=== PATIENT | female | born 1955 | race Caucasian/White ===

== ENCOUNTER 2017-01-03 17:04 | Observation (INO) | payer MEDICARE, OTHER ==
[~2017-01-03] VITALS: Ht 152.4 cm; Wt 79.0 kg
[~2017-01-03 17:04] MED LIST: AMLO10 PO; CYCL-36 PO; LAMI200T PO; SERO100T PO
[2017-01-03 17:15] VITALS: BP 193/124; PULSE 82; RESP 16; TEMP 98.2; O2SAT 95
[2017-01-03 17:21] VITALS: BP 195/106; PULSE 72; RESP 19; O2SAT 95
--- NOTE | 2017-01-03 17:55 | PD ---
HPI Chief Complaint: Pain: Acute or Chronic Time Seen by Provider: 17:44 Travel History International Travel<30 days: No Contact w/Intl Traveler<30days: No Traveled to known affect area: No History of Present Illness HPI 61yo F with PMH of HTN noncompliant with medication for 1 month, CVA, borderline DM presents to the ED with c/o left upper back pain that radiates to left arm, left chest and left neck. States it is pressure like and constant for 2 days. Associated with sob and tingling in the distal aspects of her left fingers. Denies any fever, n/v, abdominal pain, trauma, focal weakness or slurred speech. Took advil with no improvement. PFSH Past Medical History Arthritis: No Asthma: Yes Bipolar Disorder: Yes Cardiovascular Problems: Yes (HTN) High Cholesterol: No Cerebrovascular Accident: Yes Diabetes: Yes Patient Takes Glucophage: No Gastrointestinal Disorders: Yes Genitourinary: No Hypertension: Yes Musculoskeletal: Yes Neurologic: Yes Psychiatric: Yes Respiratory: Yes Myocardial Infarction: Yes Influenza Vaccination: No ?: Not Menopausal: Yes Past Surgical History Abdominal Surgery: Yes (CHOLECYSTECTOMY, APPENDECTOMY) Appendectomy: Yes Cardiac Surgery: No Cholecystectomy: Yes Ear Surgery: No Endocrine Surgery: No Eye Surgery: No Genitourinary Surgery: No Gynecologic Surgery: Yes (HYSTERECTOMY) Hysterectomy: Yes Thoracic Surgery: No Other Surgery: Yes Social History Alcohol Use: Yes (RARELY) Tobacco Use: No Substance Use: No Allergies-Medications (Allergen,Severity, Reaction): Coded Allergies: Penicillin (Verified Allergy, Severe, 01/03/17) Sulfa (Verified Allergy, Severe, 01/03/17) Reported Meds & Prescriptions Reported Meds & Active Scripts Active No Active Prescriptions or Reported Medications Review of Systems Except as stated in HPI: all other systems reviewed are Neg Physical Exam Narrative GENERAL: 61yo F not in distress. SKIN: Warm and dry. HEAD: Atraumatic. Normocephalic. EYES: Pupils equal and round. EOMI. No scleral icterus. No injection or drainage. ENT: No nasal bleeding or discharge. Mucous membranes pink and moist. NECK: Trachea midline. No JVD. +TTP left paraspinal muscle. CARDIOVASCULAR: Regular rate and rhythm. No murmur appreciated. RESPIRATORY: No accessory muscle use. Clear to auscultation. Breath sounds equal bilaterally. GASTROINTESTINAL: Abdomen soft, non-tender, nondistended. MUSCULOSKELETAL: +TTP left trapezius. LUE: Radial pulse 2+. Deltoid sensation intact. Able to move left shoulder. No obvious deformities. No clubbing. No cyanosis. No edema. NEUROLOGICAL: Awake and alert. No obvious cranial nerve deficits. Motor grossly within normal limits. Normal speech. PSYCHIATRIC: Appropriate mood and affect; insight and judgment normal. Data Data Last Documented VS Vital Signs Date Time Temp Pulse Resp B/P Pulse Ox O2 Delivery O2 Flow Rate FiO2 01/03/17 19:00 65 16 180/95 97 Nasal Cannula 2 01/03/17 17:15 98.2 Orders Basic Metabolic Panel (Bmp) (01/03/17 17:52) Ckmb (Isoenzyme) Profile (01/03/17:52) Complete Blood Count With Diff (01/03/17:52) Magnesium (Mg) (01/03/17 17:52) Prothrombin Time / Inr (Pt) (01/03/17:52) Act Partial Throm Time (Ptt) (01/03/17 17:52) Troponin I (01/03/17 17:52) Chest, Single Ap (01/03/17 17:52) Ecg Monitoring (01/03/17 17:52) Bilateral Bp Monitoring (01/03/17:52) Iv Access Insert/Monitor (01/03/17:52) Oximetry (01/03/17 17:52) Oxygen Administration (01/03/17 17:52) Aspirin (Aspirin) (01/03/17 18:00) Sodium Chloride 0.9% Flush (Ns Flush) (01/03/17 18:00) Ketorolac Inj (Toradol Inj) (01/03/17 18:00) Electrocardiogram (01/03/17 ) Diazepam (Valium) (01/03/17 19:45) Admit Order (Ed Use Only) (01/03/17 19:43) Activity Bed Rest With Brp (01/03/17:43) Vital Signs (Adult) Q4H (01/03/17 19:43) Cardiac Rhythm .As Directed (01/03/17:43) ^ Notify Dr: Other .PRN (01/03/17:43) ^ Notify Dr. Parameters (3/14/17 19:43) Resp Oxygen Nasal Cannula (01/03/17 ) Ckmb (Isoenzyme) Profile (01/03/17 19:43) Ckmb (Isoenzyme) Profile (01/03/17 22:43) Troponin I (01/03/17 19:43) Troponin I (01/03/17 22:43) Electrocardiogram (01/03/17 19:43) Electrocardiogram (01/03/17 22:43) ^ Obtain (01/03/17 19:43) Sodium Chloride 0.9% Flush (Ns Flush) (01/03/17 19:45) Sodium Chloride 0.9% Flush (Ns Flush) (01/03/17 21:00) Comb Machine Operator / Telemetry TED.Q8H (01/03/17 19:43) Labs Laboratory Tests Test 01/03/17 17:55 White Blood Count 5.7 TH/MM3 Red Blood Count 4.61 MIL/MM3 Hemoglobin 14.3 GM/DL Hematocrit 41.1 % Mean Corpuscular Volume 89.3 FL Mean Corpuscular Hemoglobin 31.0 PG Mean Corpuscular Hemoglobin 34.7 % Concent Red Cell Distribution Width 13.9 % Platelet Count 147 TH/MM3 Mean Platelet Volume 7.7 FL Neutrophils (%) (Auto) 64.9 % Lymphocytes (%) (Auto) 28.4 % Monocytes (%) (Auto) 5.1 % Eosinophils (%) (Auto) 1.2 % Basophils (%) (Auto) 0.4 % Neutrophils # (Auto) 3.7 TH/MM3 Lymphocytes # (Auto) 1.6 TH/MM3 Monocytes # (Auto) 0.3 TH/MM3 Eosinophils # (Auto) 0.1 TH/MM3 Basophils # (Auto) 0.0 TH/MM3 CBC Comment DIFF FINAL Differential Comment Prothrombin Time 11.7 SEC Prothromb Time International 1.1 RATIO Ratio Activated Partial 25.6 SEC Thromboplast Time Sodium Level 145 MEQ/L Potassium Level 3.8 MEQ/L Chloride Level 107 MEQ/L Carbon Dioxide Level 28.2 MEQ/L Anion Gap 10 MEQ/L Blood Urea Nitrogen 10 MG/DL Creatinine 0.75 MG/DL Estimat Glomerular Filtration 78 ML/MIN Rate Random Glucose 105 MG/DL Calcium Level 8.8 MG/DL Magnesium Level 2.2 MG/DL Total Creatine Kinase 95 U/L Troponin I LESS THAN 0.02 NG/ML [facility] Medical Decision Making Medical Screen Exam Complete: Yes Emergency Medical Condition: Yes Interpretation(s) EKG: NSR 67bpm. LAD. Q wave III, aVF. TW flattening aVL. Differential Diagnosis Musculoskeletal pain vs. cervical radiculopathy vs. atypical chest pain vs. ACS Narrative Course 61yo F with very atypical chest pain. Labs reviewed, no leukocytosis. Troponin negative. CXR negative. Pt given aspirin 325mg and toradol. Pt reevaluated at bedside and still with pain. Although I feel it is mainly musculoskeletal, pt has cardiac risk factors and states pain radiates to her chest. Will given valium 2mg PO. Pt is able to move left shoulder and elbow with good range of motion. States she has not had recent cardiac work up. Will admit pt to chest pain center. Diagnosis Primary Impression: Chest pain Qualified Code: R07.9 - Chest pain, unspecified type Admitting Information Admitting Physician Requests: Observation Scripts No Active Prescriptions or Reported Meds Maggie Waters DO Jan 03, 2017 17:55
[2017-01-03] MEDS ORDERED: SODIUM CHLORIDE 0.9% FLUSH 5 ML FLUSH IVF PRN ×2 (18:00→19:45)
[2017-01-03] MEDS ORDERED: KETOROLAC TROMETHAMINE 30 MG/ML (IVP) VIAL IV PUSH ONE (18:00)
[2017-01-03] MEDS ORDERED: ASPIRIN 325 MG TAB PO ONE (18:00)
[2017-01-03 18:06] VITALS: BP 181/99; PULSE 62; RESP 16; O2SAT 98
[2017-01-03 18:07] LABS: AUTOMATED NEUTROPHIL # 3.7 TH/MM3 (1.8-7.7); BASOPHIL % 0.4 % (0.0-2.0); EOSINOPHIL # 0.1 TH/MM3 (0-0.4); EOSINOPHIL % 1.2 % (0.0-4.0); HEMATOCRIT 41.1 % (35.0-46.0); HEMO FLAGS DIFF FINAL; LYMPH % 28.4 % (9.0-44.0); LYMPHOCYTE # 1.6 TH/MM3 (1.0-4.8); MEAN CELL VOLUME 89.3 FL (80.0-100.0); MEAN CORPUSCULAR HGB CONC 34.7 % (32.0-36.0); MONO % 5.1 % (0.0-8.0); NEUT % 64.9 % (16.0-70.0); PLATELET COUNT 147 TH/MM3 (150-450); RED BLOOD COUNT 4.61 MIL/MM3 (4.00-5.30); RED CELL DISTRIBUTION WIDTH 13.9 % (11.6-17.2); WHITE BLOOD COUNT 5.7 TH/MM3 (4.0-11.0)
[2017-01-03 18:14] LABS: APTT (PATIENT) 25.6 SEC (24.3-30.1); INTERNATIONAL NORMALIZED RATIO 1.1 RATIO; PROTHROMBIN TIME - PATIENT 11.7 SEC (9.8-11.6)
[2017-01-03 18:31] LABS: ANION GAP 10 MEQ/L (5-15); BICARBONATE 28.2 MEQ/L (21.0-32.0); BLOOD UREA NITROGEN 10 MG/DL (7-18); CHLORIDE 107 MEQ/L (98-107); GLOMERULAR FILTRATION RATE 78 ML/MIN (>89); MAGNESIUM 2.2 MG/DL (1.5-2.5); POTASSIUM 3.8 MEQ/L (3.5-5.1); SODIUM (NA) 145 MEQ/L (136-145)
[2017-01-03 18:51] LABS: CREATINE KINASE 95 U/L (26-192)
[2017-01-03 19:00] VITALS: BP 180/95; PULSE 65; RESP 16; O2SAT 97
--- NOTE | 2017-01-03 19:27 | RADRPT ---
EXAM DATE/TIME: 01/03/2017 18:31 [facility] COMPARISON: CHEST SINGLE AP, June 27, 2016, 15:08. INDICATIONS : Shortness of breath. MEDICAL HISTORY : Asthma SURGICAL HISTORY : None. ENCOUNTER: Initial ACUITY: 1 day PAIN SCORE: 0/10 LOCATION: Bilateral chest FINDINGS: A single view of the chest demonstrates the lungs to be symmetrically aerated without evidence of mas s, infiltrate or effusion. The cardiomediastinal contours are unremarkable. Osseous structures are intact. Multiple overlying leads. CONCLUSION: No acute disease. Marcel Shepherd MD on January 03, 2017 at 19:26 Board Certified Radiologist. This report was verified electronically.
[2017-01-03] MEDS ORDERED: DIAZEPAM 2 MG TAB PO ONE (19:45)
[2017-01-03] MEDS: SODIUM CHLORIDE 0.9% FLUSH 5 ML FLUSH IVF SCH (20:50)
[2017-01-03 21:00] VITALS: BP 168/82; PULSE 67; RESP 16; O2SAT 98
[2017-01-03 21:55] LABS: CREATINE KINASE 76 U/L (26-192)
[2017-01-03 22:11] VITALS: O2SAT 95
[2017-01-03] MEDS ORDERED: MORPHINE SULFATE 4 MG/ML INJ IV PUSH ONE (22:45)
[2017-01-04] VITALS (7 sets, daily range): BP systolic 156–178; BP diastolic 74–93; PULSE 60–84; RESP 18; TEMP 97.8–98; O2SAT 93–97
[2017-01-04 00:44] LABS: CREATINE KINASE 67 U/L (26-192)
[2017-01-04] MEDS ORDERED: amLODIPine BESYLATE 5 MG TAB PO SCH (09:00)
[2017-01-04] MEDS: SODIUM CHLORIDE 0.9% FLUSH 5 ML FLUSH IVF SCH (09:16)
--- NOTE | 2017-01-04 11:28 | HHI.HP ---
HPI Primary Care Physician No Primary Care Physician Chief Complaint Chest pain History of Present Illness This is a 61-year-old female that presents to the ED with a complaint of chest discomfort and back pain. She states the back pain is from her upper back rates her left arm. The chest pain is left-sided chest and radiates to the left neck. It is been intermittent for about a month. Nothing in particular brings on the discomfort. She really cannot elaborate on how long the discomfort last. No associated shortness red nausea or diaphoresis with this. Cannot recall any prior stress testing but upon review records she did have an echo in April 2016 that revealed normal wall motion. EF is 55%. There was trace mitral and tricuspid regurgitation. Patient states she's been noncompliant with her medications for a month. She cannot recall the medicines that she takes but believes that one of them are a blood pressure medicine. She states she has borderline diabetes but has not taken medicine for it for a while. Review of Systems General: Patient denies fevers, chills recent, and recent travel HEENT: Patient denies headache, sore throat, difficulty swallowing. Cardiovascular: Has the chest discomfort as mentioned above. Denies sensation of heart beating rapidly or irregularly. No syncope. Respiratory: Denies shortness of breath or inspirational chest discomfort. Denies coughing wheezing or hemoptysis. GI: Patient denies nausea, vomiting, diarrhea, abdominal pain, bloody stools. Musculoskeletal: Patient is complaining of left-sided back pain that radiates down her arm. Patient denies joint pain or edema. Denies calf pain or edema. Neurovascular: Patient denies numbness, tingling, weakness in extremities. Denies headache. Endocrine: Denies polyuria and polydipsia. Hematologic: Denies easy bruising. Skin: Denies rash or itching. Past Family Social History Allergies: Coded Allergies: Penicillin (Verified Allergy, Severe, 01/03/17) Sulfa (Verified Allergy, Severe, 01/03/17) Past Medical History Hypertension, chronic back pain, noncompliance. She states she has borderline diabetes but does not take medicine. Denies hyperlipidemia and known CAD. Past Surgical History Cholecystectomy, appendectomy, and hysterectomy. Reported Medications Reported Meds & Active Scripts Active No Active Prescriptions or Reported Medications Active Ordered Medications Current Medications Medications (Trade) Dose Ordered Sig/Kamryn Route Start Time Stop Time Status Last Admin (NS Flush) 2 ml UNSCH PRN IVF 01/03/17 19:45 (NS Flush) 2 ml BID IVF 01/03/17 21:00 01/04/17 09:16 (Norvasc) 5 mg DAILY PO 01/04/17 09:00 01/04/17 09:16 Family History Patient is unaware of her family history. Social History Patient is a nonsmoker. Denies illicit drugs. She rarely has alcohol. Physical Exam Vital Signs Vital Signs Date Time Temp Pulse Resp B/P Pulse Ox O2 Delivery O2 Flow Rate FiO2 01/04/17 07:24 98.0 66 18 156/74 94 01/04/17 04:05 60 01/04/17 03:22 97.9 84 18 166/75 97 01/04/17 00:10 60 01/04/17 00:09 97.8 60 18 178/93 97 01/03/17 22:11 95 01/03/17 21:00 67 16 168/82 98 Nasal Cannula 2 01/03/17 19:00 65 16 180/95 97 Nasal Cannula 2 01/03/17 18:06 62 16 181/99 98 Nasal Cannula 2 01/03/17 18:00 98 Nasal Cannula 2 01/03/17 17:21 72 19 195/106 95 Nasal Cannula 2 01/03/17 17:15 98.2 82 16 193/124 95 Physical Exam GENERAL: This is a well-nourished, well-developed patient, in no apparent distress. Patient speaks in clear complete sentences. Patient is pleasant. HEENT: Head is atraumatic and normocephalic. Neck is supple without lymphadenopathy and trachea is midline. No JVD or carotid bruits. CARDIOVASCULAR: Regular rate and rhythm without murmurs, gallops, or rubs. RESPIRATORY: Clear to auscultation. Breath sounds equal bilaterally. No wheezes , rales, or rhonchi. Chest wall is nontender. No use of accessory muscles. GASTROINTESTINAL: Abdomen is nontender, nondistended. Abdomen soft. No obvious pulsatile mass or bruit. No CVA tenderness. Strong femoral pulses bilaterally. Normal bowel sounds in all quadrants. MUSCULOSKELETAL: Patient is moving upper and lower extremities freely. No calf tenderness or edema, no Homans sign. Strong pulses in upper and lower extremities. NEUROLOGICAL: Patient is alert and oriented. Cranial nerves 2-12 are grossly intact. No focal deficits and speech is clear. SKIN: No rash and turgor is normal. Laboratory Laboratory Tests Test 01/03/17 01/03/17 01/04/17 17:55 20:58 00:10 White Blood Count 5.7 Red Blood Count 4.61 Hemoglobin 14.3 Hematocrit 41.1 Mean Corpuscular Volume 89.3 Mean Corpuscular Hemoglobin 31.0 Mean Corpuscular Hemoglobin 34.7 Concent Red Cell Distribution Width 13.9 Platelet Count 147 Mean Platelet Volume 7.7 Neutrophils (%) (Auto) 64.9 Lymphocytes (%) (Auto) 28.4 Monocytes (%) (Auto) 5.1 Eosinophils (%) (Auto) 1.2 Basophils (%) (Auto) 0.4 Neutrophils # (Auto) 3.7 Lymphocytes # (Auto) 1.6 Monocytes # (Auto) 0.3 Eosinophils # (Auto) 0.1 Basophils # (Auto) 0.0 CBC Comment DIFF FINAL Differential Comment Prothrombin Time 11.7 Prothromb Time International 1.1 Ratio Activated Partial 25.6 Thromboplast Time Sodium Level 145 Potassium Level 3.8 Chloride Level 107 Carbon Dioxide Level 28.2 Anion Gap 10 Blood Urea Nitrogen 10 Creatinine 0.75 Estimat Glomerular Filtration 78 Rate Random Glucose 105 Calcium Level 8.8 Magnesium Level 2.2 Total Creatine Kinase 95 76 67 Troponin I LESS THAN 0.02 LESS THAN 0.02 LESS THAN 0.02 Result Diagram: 01/03/17175401/03/171754 Imaging Last 24 hours Impressions Chest X-Ray 01/03/17 175 Signed Impressions: Service Date/Time: Tuesday, January 03, 2017 18:31 - CONCLUSION: No acute disease. Marcel Shepherd MD Course EKGs have sinus rhythm without significant ST segment depressions or elevations. Assessment and Plan Assessment and Plan * Chest pain: Patient had serial cardiac enzymes and EKGs for ruling out purposes. She has been seen by Dr. Chacon cardiology and the chest pain center and will undergo a Lexiscan. She will likely be discharged home if her stress test were to be nonischemic. * Hypertension: Patient has been noncompliant. We will start amlodipine. Maninder Oh Jan 04, 2017 11:28
[2017-01-04] MEDS ORDERED: REGADENOSON INJ 0.4 MG/5 ML SYR ONE (12:07)
--- NOTE | 2017-01-04 13:15 | RADRPT ---
EXAM DATE/TIME: 01/04/2017 11:13 [facility] COMPARISON: No previous studies available for comparison. INDICATIONS : Substernal chest pain radiating to left arm. Angina. Myocardial infarction. DOSE: 27.0 mCi Tc99m Myoview at stress. 8.5 mCi Tc99m Myoview at rest. 0.4 mg Lexiscan STRESS SYMPTOMS: Headache and dyspnea. EJECTION FRACTION: 68% MEDICAL HISTORY : Hypertension. Diabetes mellitus type 2. SURGICAL HISTORY : Appendectomy. Cholecystectomy. Hysterectomy. ENCOUNTER: Initial ACUITY: 1 day PAIN SCALE: 6/10 LOCATION: Substernal chest TECHNIQUE: The patient underwent pharmacologic stress with infusion of prescribed dose. Continuous ECG tracing was monitored during stress. Gated SPECT imaging was performed after stress and conventional SPECT i maging was performed at rest. The examination was performed on a SPECT/CT scanner, both attenuation and non-corrected datasets were reviewed. FINDINGS: DISTRIBUTION: The maximum perfused segment at stress is in the lateral wall. PERFUSION STUDY: The pattern of perfusion at stress is within normal limits. GATED STUDY: There is intact wall motion and thickening without hypokinetic or dyskinetic segments. CONCLUSION: No areas of ischemia are seen. RISK CATEGORY: Low (<1% Annual Mortality Rate) Gato Ojeda MD on January 04, 2017 at 13:09 Board Certified Radiologist. This report was verified electronically.
[2017-01-04] MEDS ORDERED: AMLO5TAB2 PO (13:19)
--- NOTE | 2017-01-04 13:19 | HHI.DCPOC ---
Discharge Care Plan Diagnosis: (1) Chest pain (2) HTN (hypertension) Goals to Promote Your Health * To prevent worsening of your condition and complications * To maintain your health at the optimal level Directions to Meet Your Goals Take your medications as prescribed Follow your dietary instruction Follow activity as directed Keep your appointments as scheduled Take your immunizations and boosters as scheduled If your symptoms worsen call your PCP, if no PCP go to Urgent Care Center or Emergency Room Smoking is Dangerous to Your Health. Avoid second hand smoke Call the 24-hour hour crisis hotline for domestic abuse at Maninder Oh Jan 04, 2017 13:19
--- NOTE | 2017-01-04 19:54 | EKG ---
Date Performed: 01/04/2017 Time Performed: 00:04:12 PTAGE: 61 years EKG: Sinus rhythm MODERATE VOLTAGE CRITERIA FOR LVH, CONSIDER NORMAL VARIANT NONSPECIFIC T-WAVE ABNORMALITY BORDERLINE ECG PREVIOUS TRACING : 01/03/2017 15.44 Compared to prior tracing no significant change DOCTOR: Ericka Felipe Interpretating Date/Time 01/04/2017 19:53:32
--- NOTE | 2017-01-04 20:00 | EKG ---
Date Performed: 01/03/2017 Time Performed: 20:56:21 PTAGE: 61 years EKG: Sinus rhythm VOLTAGE CRITERIA FOR LVH NONSPECIFIC T-WAVE ABNORMALITY ABNORMAL ECG PREVIOUS TRACING : 01/01/2017 14.22 Compared to prior tracing no significant change DOCTOR: Ericka Felipe Interpretating Date/Time 01/04/2017 19:59:58
--- NOTE | 2017-01-04 20:15 | EKG ---
Date Performed: 01/03/2017 Time Performed: 15:44:47 PTAGE: 61 years EKG: Sinus rhythm MODERATE VOLTAGE CRITERIA FOR LVH, CONSIDER NORMAL VARIANT NONSPECIFIC T-WAVE ABNORMALITY BORDERLINE ECG PREVIOUS TRACING : 06/27/2016 16.09 Compared to prior tracing no significant change DOCTOR: Ericka Felipe Interpretating Date/Time 01/04/2017 20:14:16
--- NOTE | 2017-01-05 21:16 | TR ---
Date Performed: 01/04/2017 Time Performed: 11:50:24 DOCTOR: Aliza Chacon DRUG LIST: CLINICAL HISTORY: REASON FOR TEST: REASON FOR ENDING: OBSERVATION: CONCLUSION: Lexiscan stress test was performed under standard four minute protocol. Radionuclid e was injected one minute prior to ending the test. No electrocardiographic abormalities were present to suggest ischemia. Nuclear imaging and interpretation are pending. COMMENTS:
== END 2017-01-04 15:38 | disposition home or self-care (01) ==
LOC: NEPA 17:04 → NEDA 19:45 → NEPFCDU 23:54
PROVIDERS: ADMIT Internal Medicine Interventional Cardiology; ATTEND Internal Medicine Interventional Cardiology
DX: R07.89 Other chest pain (principal); I10 Essential (primary) hypertension; J45.909 Unspecified asthma, uncomplicated; I25.2 Old myocardial infarction; F31.9 Bipolar disorder, unspecified; E11.9 Type 2 diabetes mellitus without complications; M54.9 Dorsalgia, unspecified; G89.29 Other chronic pain; Z88.0 Allergy status to penicillin; Z88.2 Allergy status to sulfonamides; Z91.14 Patient's other noncompliance with medication regimen; Z86.73 Personal history of transient ischemic attack (TIA), and cerebral infarction without residual deficits
CPT/HCPCS: 71010; 78452; 80048; 82550; 83735; 84484; 85025; 85610; 85730; 93005; 93017; 96374; 99285; A9502; G0378; J1885; J2270; J2785